=== PATIENT | female | born 1965 ===

== ENCOUNTER → 2017-01-01 | Outpatient (CLI) | payer OTHER ==
--- NOTE | 2017-01-02 16:23 | RADIOLOGY REPORT (SQ) ---
EXAM DESCRIPTION: MRI LT LOWER JOINT WITHOUT COMPLETED DATE/TIME: 01/01/2017 5:53 pm REASON FOR STUDY: PAIN IN LEFT KNEE, OTHER MENISCUS DERANGEMENTS, LEFT KNEE M25.562 PAIN IN LEFT KN EE M23.362 OTH MENISCUS DERANGEMENTS, OTHER LATERAL MENISCUS, L COMPARISON: None. TECHNIQUE: Leftknee images acquired and stored on PACS. Multiplanar images include fat sensitive se quences as T1, water sensitive sequences as FST2 or STIR, cartilage sensitive sequences as FSPD, and gradient echo sequences. LIMITATIONS: Motion. FINDINGS: JOINT AND BURSAE: Joint effusion. BONE CORTEX AND MARROW: No alteration of signal to suggest marrow replacement. No worrisome bone lesi ons. No occult fracture. ACL: Intact. No degeneration or ganglion cyst. PCL: Intact. Ligament of Brenner. MCL: Intact. No periligamentous edema or fluid. LCL: Intact. No periligamentous edema or fluid. MEDIAL MENISCUS: Increased signal in the posterior horn which does not extend to the articular surfac e. Posterior strut not well visualized. LATERAL MENISCUS: Attenuated medial margin of the anterior horn. Cannot exclude a small tear here. MEDIAL COMPARTMENT: Cartilage relatively preserved. No bone bruises or reactive marrow edema. No oste ophytes. LATERAL COMPARTMENT: Cartilage relatively preserved. No bone bruises or reactive marrow edema. No ost eophytes. PATELLA: No chondromalacia. No subchondral cysts. Medial and lateral retinacula intact. EXTENSOR MECHANISM: Intact. Quadriceps and patella tendons normal. SOFT TISSUES: Small ganglion adjacent to the origin of the medial head of the gastrocnemius. OTHER: No other significant finding. IMPRESSION: 1. Suspected small tear of the anterior horn lateral meniscus. 2. No definite medial meniscal tear. There is poor visualization of the posterior root. 3. Joint effusion. TECHNICAL DOCUMENTATION: JOB ID: [id number] [employer]- All Rights Reserved
== END ==
LOC: RAD 16:56
PROVIDERS: ATTEND Orthopaedic Surgery Sports Medicine
DX: M25.562 Pain in left knee (principal); M23.362 Other meniscus derangements, other lateral meniscus, left knee